=== PATIENT | female | born 1975 | race Caucasian/White ===

== ENCOUNTER 2021-02-10 11:39 | Emergency (ER) | payer MEDICAID ==
[~2021-02-10] VITALS: Ht 162.6 cm; Wt 76.0 kg
[~2021-02-10 11:39] MED LIST: ASPI-867 PO; CIPR500T5 PO; LISI-186 PO; METF-414 PO; PRAV40TA58 PO
[2021-02-10] MEDS ORDERED: ACETAMINOPHEN 325MG TABLET PO STA (12:21)
[2021-02-10] MEDS ORDERED: SODIUM CHLORIDE 0.9% 1,000 ML IV ONE (12:30)
[2021-02-10 12:54] LABS: EOSINOPHILS % 0.1 % (0.0-5.0); HEMATOCRIT. 33.5 % (36.0-48.0); HEMOGLOBIN. 11.5 g/dL (12.0-16.0); LYMPHOCYTES % 27.3 % (20.0-50.0); MEAN CORPUSCULAR HEMOGLOBIN 30.4 pg (28.0-32.0); MEAN CORPUSCULAR VOLUME 88.2 fL (81.0-99.0); MEAN PLATELET VOLUME 7.9 fl (7.4-10.4); MONOCYTES % 8.6 % (2.0-8.0); PLATELET 364 x1000/uL (130-400); RED CELL DISTRIBUTION WIDTH 14.1 % (11.6-14.6)
[2021-02-10 13:00] LABS: CHLORIDE 106 mEq/L (98-107)
[2021-02-10 13:03] LABS: ETHANOL BLOOD 194 mg/dL; HCG SCREEN NEGATIVE
[2021-02-10] MEDS ORDERED: POTASSIUM CHLORIDE 20MEQ TABLET SR PO NR (13:30)
[2021-02-10 13:55] VITALS: BP 112/81
== END 2021-02-10 14:16 | disposition left against medical advice (07) ==
LOC: ER 11:39
DX: S29.8XXA Other specified injuries of thorax, initial encounter (principal); S09.8XXA Other specified injuries of head, initial encounter; F10.229 Alcohol dependence with intoxication, unspecified; Y90.6 Blood alcohol level of 120-199 mg/100 ml; K70.10 Alcoholic hepatitis without ascites; R00.0 Tachycardia, unspecified; E87.6 Hypokalemia; I10 Essential (primary) hypertension; E11.9 Type 2 diabetes mellitus without complications; D64.9 Anemia, unspecified; Z91.14 Patient's other noncompliance with medication regimen; V18.0XXA Pedal cycle driver injured in noncollision transport accident in nontraffic accident, initial encounter; Y93.55 Activity, bike riding; Y92.488 Other paved roadways as the place of occurrence of the external cause
CPT/HCPCS: 36415; 71045; 80053; 80320; 84484; 84703; 85025; 93005; 96360; 99285; J7030; G0480